=== PATIENT | female | born 1985 | race African-American/Black ===

== ENCOUNTER 2024-04-01 16:47 | Emergency (ER) | payer MEDICAID, SELFPAY ==
[2024-04-01 16:51] VITALS: BP 127/82; PULSE 58; RESP 16; TEMP 36.2; O2SAT 100; BMI 38.2
--- NOTE | 2024-04-01 17:25 | ED.FEMALEGU ---
HPI - Female Genitourinary General Chief complaint: Urogenital-Female Stated complaint: bacterial infection/UTI? Time Seen by Provider: 04/01/24 16:58 Source: patient Mode of arrival: ambulatory Limitations: no limitations History of Present Illness HPI Narrative: Patient is a 38-year-old female who presents emergency department for evaluation of dysuria over the past 2 days. Denies fevers, chills, nausea, vomiting or abdominal pain. Denies back/flank pain. Denies pelvic pain. Denies abnormal vaginal discharge or bleeding. Denies pain with intercourse. Denies concern for sexually transmitted infections. Denies possibility for .. Denies Related Data Previous Rx's ?Medication ?Instructions ?Recorded cefuroxime axetil 250 mg tablet 250 mg PO BID #13 tabs 04/01/24 Allergies Allergy/AdvReac Type Severity Reaction Status Date / Time No Known Allergies Allergy Verified 04/01/24 16:54 Review of Systems Review of Systems: Yes all other systems are reviewed and are negative [facility] Past Medical History Attestation statement: The following information was validated with the patient. Source: old records reviewed Social History Social History Advance Directives: No Advance Directives Information Provided: No Physical Exam Vital Signs: Vital Signs: Last Vital Signs Temp 97.2 F 04/01/24 16:51 Pulse 58 04/01/24 16:51 Resp 16 04/01/24 16:51 BP 127/82 04/01/24 16:51 Pulse Ox 100 04/01/24 16:51 O2 Del Method Room Air 04/01/24 16:51 BMI result Body Mass Index 38.2 Appearance: Alert.?Oriented to person, place and time. No acute distress.?Normal affect. CVS: Heart sounds normal. Normal heart rate and rhythm.? Pulses normal.?? Respiratory: No respiratory distress.? Lung sounds clear to auscultation bilaterally?? Abdomen: Soft and non-tender. Normoactive bowel sounds. No CVAT Skin: Skin warm and dry.? Normal skin color.? ? Extremities: No lower extremity edema.? Neuro: Moves all extremities spontaneously. Sensation intact bilaterally. Ambulates with normal steady gait. Medical Decision Making Medical Decision Making MDM Narrative: Patient is a 38-year-old female with past medical history of prior urinary tract infections by her account not known to be resistant to any bacteria, has not been treated in the past few months, she presents with dysuria x2 days. Urinalysis is consistent with urinary tract infection for which she received an initial dose of cefuroxime in the emergency department, No CVAT to suggest pyelonephritis. HCG is negative, not consistent with ectopic . No unilateral abdominal pain or tenderness on examination, denies concern for sexually transmitted infection, denies history of ovarian cysts lower suspicion for tubo-ovarian abscess/ PID, ovarian torsion, ruptured ovarian cyst. Differential Diagnosis Differential Diagnoses: The differential diagnosis associated with the presentation includes (See narrative above) Lab Data MDM Lab Attestation statement: I reviewed the patient's lab results. (See narrative above) Labs: Lab Results 04/01/24 Range/Units 17:41 Urine Color Yellow Urine Appearance Turbid Urine pH 5.5 (5.0-9.0) Ur Specific [place] 1.020 (1.005-1.025) Urine Protein Negative (Neg-Trace) mg/dL Urine Glucose (UA) Negative (Negative) mg/dL Urine Ketones Negative (Negative) mg/dL Urine Blood Negative (Negative) Urine Nitrite Positive H (Negative) Ur Leukocyte Esterase Moderate (2+) H (Negative) Urine Test NEGATIVE (NEGATIVE) Independent Historian Clinical information obtained from an independent historian. History obtained from or confirmed by: Parent Tests considered The following testing was considered but not selected: Well-appearing, nontoxic afebrile, would defer serum labs Prescription Management I considered prescription management with: Antibiotic Discharge Plan Discharge Clinical Impression: Urinary tract infection Patient Disposition: Home, Self-Care Instructions: Urinary Tract Infection in Women (ED) Additional Instructions: Do not stop taking your antibiotics early or skip any doses even if you begin to feel better. Be sure that you are drinking plenty of water. Refrain from holding your urine if you feel the urge to go to the bathroom. Be sure that you are urinating after sexual intercourse. Do not perform any vaginal douching for extensive cleansing as this may increase the chances of developing a urinary tract infection. Prescriptions: New cefuroxime axetil 250 mg tablet 250 mg PO BID Qty: 13 0RF Referrals: Pierre Schumacher [Other] Print Language: Syrian
[2024-04-01 17:49] LABS: Appearance Urine Turbid; Color Urine Yellow; Glucose Urine UA Negative (Negative); Leukocyte Esterase Urine Moderate (2+) (Negative); Nitrite Urine Positive (Negative); PH 5.5 (5.0-9.0); UMIC TRIGGER UACC YES; UPreg QC Valid YES; Urine Blood Negative (Negative); Urine Ketones Negative (Negative); Urine Pregnancy NEGATIVE (NEGATIVE); Urine Protein Negative (Neg-Trace)
[2024-04-01 18:14] LABS: WBC Urine 21-50 /HPF (0-5)
[2024-04-01 18:15] LABS: Bacteria Urine 4+ (None Seen); Hyaline Casts Urine 0-2 /LPF (0-2); Squamous Epithelial Cell Urine >20 /HPF (0-2); UACC Culture Trigger YES
[2024-04-01] MEDS: cefuroxime axetiL 250 MG TABLET PO (18:37)
[2024-04-01 18:38] VITALS: BP 127/82; PULSE 58; RESP 16; TEMP 36.2; O2SAT 100
== END 2024-04-01 18:39 | disposition home or self-care (01) ==
PROVIDERS: Emergency Provider Emergency Medicine
DX: N39.0 Urinary tract infection, site not specified (principal)
CPT/HCPCS: 81001; 81025; 87086; 87088; 87186; 99282; 99283

== ENCOUNTER 2024-04-30 10:24 | Emergency (ER) | payer MEDICAID, SELFPAY ==
[2024-04-30 10:26] VITALS: BP 159/69; PULSE 59; RESP 16; TEMP 36.4; O2SAT 99; BMI 39.1
[2024-04-30 12:07] LABS: Appearance Urine Cloudy; Color Urine Yellow; Glucose Urine UA Negative (Negative); Leukocyte Esterase Urine Small (1+) (Negative); Nitrite Urine Negative (Negative); PH 5.5 (5.0-9.0); UMIC TRIGGER UACC YES; Urine Blood Negative (Negative); Urine Ketones Negative (Negative); Urine Protein Negative (Neg-Trace)
[2024-04-30 12:08] LABS: UPreg QC Valid YES; Urine Pregnancy NEGATIVE (NEGATIVE)
[2024-04-30 12:20] LABS: Bacteria Urine 1+ (None Seen); Hyaline Casts Urine 0-2 /LPF (0-2); RBC Urine 0-2 /HPF (0-2); UACC Culture Trigger YES; WBC Urine 0-5 /HPF (0-5)
--- NOTE | 2024-04-30 13:10 | ED.FEMALEGU ---
HPI - Female Genitourinary General Chief complaint: Urogenital-Female Stated complaint: UTI? Time Seen by Provider: 04/30/24 12:23 Source: patient Mode of arrival: ambulatory Limitations: no limitations History of Present Illness ED Provider: Duke Simpson HPI Narrative: 38 yold female presents to the ED for dysuria without any nausea, vomitting, flank pain, fever, chills, abdominal pain, vaginal discharge, vaginal lesions, or vaginal bleeding. Related Data Previous Rx's ?Medication ?Instructions ?Recorded cefuroxime axetil 250 mg tablet 250 mg PO BID #13 tabs 04/01/24 phenazopyridine 200 mg tablet 200 mg PO TID 6 doses #6 tabs 04/30/24 (Pyridium) Allergies Allergy/AdvReac Type Severity Reaction Status Date / Time No Known Allergies Allergy Verified 04/30/24 10:27 Review of Systems Review of Systems: dysuria Yes all other systems are reviewed and are negative PMFSH Social History Social History Advance Directives: No Advance Directives Information Provided: Yes Physical Exam Vital Signs: Vital Signs: Last Vital Signs Temp 97.7 F 04/30/24 14:41 Pulse 59 04/30/24 14:41 Resp 16 04/30/24 14:41 BP 172/82 H 04/30/24 14:41 Pulse Ox 98 04/30/24 14:41 O2 Del Method Room Air 04/30/24 14:41 BMI result Body Mass Index 39.1 Const: General: cooperative, healthy appearing, comfortable, no acute distress, well developed, alert and awake Orientation/consciousness: patient oriented x3 HEENT: Head: Yes normal to inspection, Yes No palpable skull fracture present and Yes normocephalic Eyes: General: appearance normal, both eyes and all related structures Neck: Neck: Yes normal visual inspection, Yes full ROM, Yes no lymphadenopathy, Yes no meningeal signs, Yes trachea midline, Yes supple, No anterior neck swelling and No tender Chest: Chest palpation & inspection: normal inspection of the chest and normal palpation of entire chest wall Resp: Effort & Inspection: normal respiratory effort and able to speak in complete sentences Auscultation: clear to auscultation bilaterally Cardio: Jugular venous distension: no JVD Heart sounds: S1 normal heart sound present and S2 normal heart sound present GI: Inspection: Yes normal to inspection Palpation (GI): not firm, nontender, no guarding and not rigid : General: No CVA tenderness and Yes no CVA tenderness Back/Spine/Pelvis: Back: no CVA tenderness, No CVA tenderness and No back tenderness Skin: General skin exam: no rashes or lesions noted, elasticity normal and turgor normal Neuro: General: patient oriented x3, gait normal, tone normal, moves all extremities, Normal light touch and pain sensation, no meningeal signs, no focal motor deficits, CN's II-XI intact bilaterally and normal sensation to monofilament Extrem: General: Yes normal to inspection, Yes full ROM and Yes capillary refill normal Psych: Appearance: grossly normal, well kempt and not disheveled Medical Decision Making Medical Decision Making MDM Narrative: 38-year-old female presents to ED for dysuria without any other complaints. Patient refused pelvic exam. Patient was self swab. 2:18pm: Patient's UA negative for infection. Patient has self swabs. Patient is well-appearing. Patient informed she will be called with results of any of them, positive and she will have to return for treatment. Does not want any empiric treatment. Not suspecting pyelonephritis, pelvic PID, tubo-ovarian abscess, ovarian rupture, appendicitis, urosepsis, colitits, life threatening etiologies or kidney stones. Patient explained worrisome signs of informed return to the ED immediately Differential Diagnosis Differential Diagnoses: The differential diagnosis associated with the presentation includes (Dysuria) Admission/Observation Consideration of admission/observation: Escalation of care including admission/observation considered Lab Data [facility] Lab Attestation statement: I reviewed the patient's lab results. Labs: Lab Results 04/30/24 04/30/24 Range/Units 11:54 13:20 Urine Color Yellow Urine Appearance Cloudy Urine pH 5.5 (5.0-9.0) Ur Specific [place] 1.020 (1.005-1.025) Urine Protein Negative (Neg-Trace) mg/dL Urine Glucose (UA) Negative (Negative) mg/dL Urine Ketones Negative (Negative) mg/dL Urine Blood Negative (Negative) Urine Nitrite Negative (Negative) Ur Leukocyte Esterase Small (1+) H (Negative) Urine RBC 0-2 (0-2) /HPF Urine WBC 0-5 (0-5) /HPF Ur Squamous Epith Cells 6-10 (0-2) /HPF Urine Bacteria 1+ (None Seen) Hyaline Casts 0-2 (0-2) /LPF Urine Test NEGATIVE (NEGATIVE) T. vaginalis (PCR) NOT DETECTED (Not Detect) Bact vaginosis (PCR) POSITIVE A (Negative) C. krusei/glabrata (PCR) NOT DETECTED (Not Detect) Verna group (PCR) NOT DETECTED (Not Detect) Independent Historian Clinical information obtained from an independent historian. History obtained from or confirmed by: Other (Patient) External Record Review External record reviewed: Other (Prior visits) Prescription Management I considered prescription management with: Other (Pyridium) Discharge Plan Discharge Clinical Impression: Dysuria Patient Disposition: Home, Self-Care Instructions: Dysuria (ED) Additional Instructions: Urinalysis did not show obvious infection. Rest of the swabs are pending. You will be called with results if they are positive. Return to the ED immediately for any abdominal pain, nausea, vomiting, flank pain, fever, chills, blood in urine, vaginal bleeding, back pain, weakness, dizziness, or any other concerning symptoms. Recommend follow up with primary care provider. Prescriptions: New phenazopyridine [Pyridium] 200 mg tablet 200 mg PO TID Qty: 6 0RF No Action cefuroxime axetil 250 mg tablet 250 mg PO BID Qty: 13 0RF Stand Alone Forms: Work/School Release Interventions: ED Discharge Assessment Last Done: 04/30/24 14:41 Discharge Date/Time: 04/30/24 14:46 Print Language: German
[2024-04-30 14:37] VITALS: BP 172/82; PULSE 59; RESP 16; TEMP 36.5; O2SAT 98
[2024-04-30 14:41] VITALS: BP 172/82; PULSE 59; RESP 16; TEMP 36.5; O2SAT 98
[2024-04-30 15:10] LABS: Bacterial Vaginosis PCR POSITIVE (Negative); Candida Group PCR NOT DETECTED (Not Detect); Candida glab krusei PCR NOT DETECTED (Not Detect); Trichomonas vaginalis PCR NOT DETECTED (Not Detect)
[2024-04-30 15:42] LABS: CT PCR NOT DETECTED (Not Detect.); NG PCR NOT DETECTED (Not Detect.)
== END 2024-04-30 14:46 | disposition home or self-care (01) ==
PROVIDERS: Physician Assistant; Emergency Provider Emergency Medicine
DX: R30.0 Dysuria (principal); R11.2 Nausea with vomiting, unspecified; R50.9 Fever, unspecified; R10.2 Pelvic and perineal pain; N89.8 Other specified noninflammatory disorders of vagina; Z79.899 Other long term (current) drug therapy
CPT/HCPCS: 0352U; 81001; 81025; 87086; 87491; 87591; 99283

== ENCOUNTER 2024-07-03 17:00 | Emergency (ER) | payer MEDICAID, SELFPAY ==
--- NOTE | ~2024-07-03 | CT_ITS ---
CLINICAL HISTORY: lower abd pain CT abdomen and pelvis with contrast Comparison: None Findings: Mild bibasilar atelectasis and scarring. Mild fat deposition of the liver. Gallbladder and solid abdominal organs are otherwise unremarkable. Small mesenteric lymph nodes are likely reactive. No small bowel obstruction. Severe stool burden is present, including the cecum. The appendix is within normal limits. Inflammatory stranding is most pronounced about the lower portion of the descending colon including about multiple diverticula. No free intraperitoneal air. No formed or drainable abscess by CT. Wall thickening of the colitis including adjacent descending colon. Mild wall thickening of the urinary bladder is nonspecific. Uterus is anteverted in the deviates to the right. No adnexal soft tissue mass. Calcification or hemipelvis likely due to phleboliths. No acute osseous abnormality. IMPRESSION: Acute diverticulitis involving the lower portion of the descending colon. No perforation or abscess formation. This document has been electronically signed by: Dionicio Biswas MD on 07/04/2024 00:25:29
[2024-07-03 17:29] VITALS: BP 139/52; PULSE 63; RESP 16; TEMP 36.4; O2SAT 98; BMI 37.9
--- NOTE | 2024-07-03 17:32 | ED_ITS ---
HPI - General Adult General Chief complaint: Abdominal Pain Stated complaint: gas pain/lwr abd pain Time Seen by Provider: 07/03/24 22:22 Related Data Previous Rx's ?Medication ?Instructions ?Recorded cefuroxime axetil 250 mg tablet 250 mg PO BID #13 tabs 04/01/24 phenazopyridine 200 mg tablet 200 mg PO TID 6 doses #6 tabs 04/30/24 (Pyridium) metronidazole 500 mg tablet 500 mg PO BID #14 tabs 05/02/24 amoxicillin 875 mg-potassium 1 tab PO BID #20 tabs 07/04/24 clavulanate 125 mg tablet Allergies Allergy/AdvReac Type Severity Reaction Status Date / Time No Known Allergies Allergy Verified 07/03/24 17:32 [facility] Social History Social History Advance Directives: No Advance Directives Information Provided: No Physical Exam ED Vital Signs: Vital Signs - 24 hr 07/03/24 17:29 07/03/24 22:36 Temperature 97.5 F 98.2 F Pulse Rate 63 73 Respiratory Rate 16 14 Blood Pressure 139/52 L 147/72 H Pulse Oximetry 98 98 Oxygen Delivery Method Room Air Room Air BMI result Body Mass Index 37.9 Course Course Course Narrative: RME performed by Dafne Jj PA-C. Patient is a 38 year old assigned female at presenting to the emergency department with lower abdominal pain. Patient states she has been having lower abdominal pain. Patient's limited physical exam performed in triage showed a non-toxic individual. Detailed physical exam and review of systems are deferred to the staff home therapy rn. Labs and swabs ordered. Patient placed back in the waiting room pending room availability and results. Medical Decision Making Lab Data 07/03/24 17:43 07/03/24 17:43 Labs: Lab Results 07/03/24 07/03/24 Range/Units 17:43 22:37 WBC 11.5 H (4.8-10.8) X10*3/uL RBC 4.78 (4.20-5.50) X10*6/uL Hgb 12.5 (12.0-16.0) g/dl Hct 39.3 (37.0-47.0) % MCV 82.2 (80.0-98.0) fL MCH 26.2 L (27.0-33.0) pg MCHC 31.8 (31.0-35.0) g/dl RDW 15.1 (11.0-16.0) % Plt Count 213 (160-400) X10*3/uL MPV 11.8 (9.4-12.3) fL Immature Gran % (Auto) 0.4 (0.0-0.4) % Neut % (Auto) 71.7 (45-73) % Lymph % (Auto) 16.7 L (20-40) % [place] % (Auto) 10.3 (2-11) % Eos % (Auto) 0.6 (0-4) % Baso % (Auto) 0.3 (0-2) % Lymph # (Auto) 1.9 (1.2-4.9) X10*3/uL [place] # (Auto) 1.2 (0.1-1.2) X10*3/uL Eos # (Auto) 0.1 (0.0-0.4) X10*3/uL Baso # (Auto) 0.0 (0.0-0.2) X10*3/uL Abs Immat Gran (auto) 0.05 H (0.00-0.03) X10*3/uL Absolute Neuts (auto) 8.3 (2.0-8.3) x10*3/uL Absolute Nucleated RBC 0.000 (0.0-0.012) X10*3/uL Nucleated RBC % (auto) 0.0 (0.0-0.2) /100WBC Sodium 139 (135-145) mmol/L Potassium 3.7 (3.3-5.1) mmol/L Chloride 105 (96-108) mmol/L Carbon Dioxide 27 (22-29) mmol/L Anion Gap 11 L (12-20) BUN 15 (9-16) mg/dL Creatinine 0.75 (0.5-1.4) mg/dL Estim Creat Clear Calc 99.3 Estimated GFR > 60 Random Glucose 111 (60-115) mg/dL Calcium 8.5 (8.4-10.2) mg/dL Magnesium 1.9 (1.6-2.6) mg/dL Total Bilirubin 0.6 (0.0-1.0) mg/dL AST 16 (5-31) U/L ALT 10 (0-31) U/L Alkaline Phosphatase 69 (39-117) U/L Total Protein 7.8 (6.5-8.0) g/dL Albumin 4.1 (3.5-5.0) g/dL Beta HCG, Quant < 2 mIU/mL Urine Color Yellow Urine Appearance Cloudy Urine pH 5.5 (5.0-9.0) Ur Specific [place] 1.020 (1.005-1.025) Urine Protein Negative (Neg-Trace) mg/dL Urine Glucose (UA) Negative (Negative) mg/dL Urine Ketones Negative (Negative) mg/dL Urine Blood Negative (Negative) Urine Nitrite Negative (Negative) Ur Leukocyte Esterase Small (1+) H (Negative) Urine RBC 0-2 (0-2) /HPF Urine WBC 6-10 H (0-5) /HPF Ur Squamous Epith Cells 6-10 (0-2) /HPF Urine Bacteria 1+ (None Seen) Hyaline Casts 0-2 (0-2) /LPF Influenza Type A (PCR) NEGATIVE (Negative) Influenza Type B (PCR) NEGATIVE (Negative) RSV RNA Qual (PCR) NEGATIVE (Negative) SARS-CoV-2 RNA (RT-PCR) NEGATIVE (Negative) Discharge Plan Discharge Clinical Impression: Diverticulitis Patient Disposition: Home, Self-Care Instructions: Diverticulitis (ED) Prescriptions: New amoxicillin-pot clavulanate 875-125 mg tablet 1 tab PO BID Qty: 20 0RF No Action phenazopyridine [Pyridium] 200 mg tablet 200 mg PO TID Qty: 6 0RF metronidazole 500 mg tablet 500 mg PO BID Qty: 14 0RF cefuroxime axetil 250 mg tablet 250 mg PO BID Qty: 13 0RF Referrals: Physician,Unknown J [Primary Care Provider] - 07/06/24 Print Language: Cameroonian
[2024-07-03 17:47] LABS: MANUAL DIFF FLAG NO
[2024-07-03 17:57] LABS: Basophils Percent Auto 0.3 % (0-2); Eosinophils Absolute Auto 0.1 X10*3/uL (0.0-0.4); Eosinophils Percent Auto 0.6 % (0-4); Hematocrit 39.3 % (37.0-47.0); Hemoglobin 12.5 g/dl (12.0-16.0); Imm Gran Abs Auto 0.05 X10*3/uL (0.00-0.03); Imm Gran Pct Auto 0.4 % (0.0-0.4); Lymphocytes Absolute Auto 1.9 X10*3/uL (1.2-4.9); Lymphocytes Percent Auto 16.7 % (20-40); Mean Corpuscular HGB Conc 31.8 g/dl (31.0-35.0); Mean Corpuscular Hemoglobin 26.2 pg (27.0-33.0); Mean Corpuscular Volume 82.2 fL (80.0-98.0); Mean Platelet Volume 11.8 fL (9.4-12.3); Monocytes Absolute Auto 1.2 X10*3/uL (0.1-1.2); Monocytes Percent Auto 10.3 % (2-11); Neutrophils Absolute Auto 8.3 x10*3/uL (2.0-8.3); Neutrophils Percent Auto 71.7 % (45-73); Platelet Count 213 X10*3/uL (160-400); Red Blood Count 4.78 X10*6/uL (4.20-5.50); Red Cell Distribution Width 15.1 % (11.0-16.0); White Blood Count 11.5 X10*3/uL (4.8-10.8)
[2024-07-03 18:08] LABS: Alanine Aminotransferase 10 U/L (0-31); Albumin Level 4.1 g/dL (3.5-5.0); Alkaline Phosphatase 69 U/L (39-117); Anion Gap 11 (12-20); Aspartate Amino Transferase 16 U/L (5-31); Bilirubin Total 0.6 mg/dL (0.0-1.0); Blood Urea Nitrogen 15 mg/dL (9-16); Calcium 8.5 mg/dL (8.4-10.2); Carbon Dioxide 27 mmol/L (22-29); Chloride 105 mmol/L (96-108); Creatinine Clr Calc Pharmacy 99.3; Estimated Glomerular Filt Rate > 60; Glucose Random 111 mg/dL (60-115); Magnesium 1.9 mg/dL (1.6-2.6); Potassium 3.7 mmol/L (3.3-5.1); Sodium 139 mmol/L (135-145); Total Protein 7.8 g/dL (6.5-8.0)
[2024-07-03 18:14] LABS: HCG Quantitative < 2 mIU/mL
[2024-07-03 18:34] LABS: Influenza A PCR NEGATIVE (Negative); Influenza B PCR NEGATIVE (Negative); Resp Syncy Virus RNA Qual PCR NEGATIVE (Negative); SARS COV2 PCR INHOUSE NEGATIVE (Negative)
--- NOTE | 2024-07-03 22:32 | ED.ABDPAIN ---
HPI - Abdominal Pain General Chief Complaint: Abdominal Pain Stated Complaint: gas pain/lwr abd pain Time Seen by Provider: 07/03/24 22:22 History of Present Illness HPI narrative: Patient is a 38-year-old female presents today with having lower abdominal pain. There is no fever no chills. There is sharp pain. There is no diaphoresis. Patient sexually active 1 partner. No vaginal discharge. Had tubal ligation many years ago. Does not think she is . No coughing no congestion or upper respiratory symptoms. No diarrhea. No vomiting. Only surgery to the abdomen done in the past was a tubal ligation. Patient's symptoms started this morning. Related Data Previous Rx's ?Medication ?Instructions ?Recorded cefuroxime axetil 250 mg tablet 250 mg PO BID #13 tabs 04/01/24 phenazopyridine 200 mg tablet 200 mg PO TID 6 doses #6 tabs 04/30/24 (Pyridium) metronidazole 500 mg tablet 500 mg PO BID #14 tabs 05/02/24 amoxicillin 875 mg-potassium 1 tab PO BID #20 tabs 07/04/24 clavulanate 125 mg tablet Allergies Allergy/AdvReac Type Severity Reaction Status Date / Time No Known Allergies Allergy Verified 07/03/24 17:32 Review of Systems Review of Systems Positive abdominal pain Yes all other systems are reviewed and are negative PMFSH Past Medical History Attestation statement: The following information was validated with the patient. Social History Social History Advance Directives: No Advance Directives Information Provided: No Physical Exam ED Vital Signs: Vital Signs - 24 hr 07/03/24 17:29 07/03/24 22:36 Temperature 97.5 F 98.2 F Pulse Rate 63 73 Respiratory Rate 16 14 Blood Pressure 139/52 L 147/72 H Pulse Oximetry 98 98 Oxygen Delivery Method Room Air Room Air BMI result Body Mass Index 37.9 Appearance: Alert. Oriented X3. No acute distress. Eyes: Pupils equal, round and reactive to light. ENT: Pharynx normal. Neck: Normal inspection. Neck supple. No lymph nodes noted. No crepitus CVS: Normal heart rate and rhythm. Pulses normal. Normal S1 and S2 Respiratory: No respiratory distress. Breath sounds normal. No Wheezing. No rales Abdomen: Soft and nontender. No rigidity. No distention. good BS x4 Skin: Skin warm and dry. Normal skin color. Normal skin turgor. Extremities: No lower extremity edema. Neurovascular intact to all extremities. No Lacerations. No Rash Neuro: Oriented X 3. No motor deficit. No sensory deficit. Moving all extermities. No slurred speech Medical Decision Making Medical Decision Making [facility] Narrative: Patient had lower abdominal pain. No vaginal discharge. Patient's urine showed no signs of infection no evidence for UTI. Patient is white count was 11. No significant shift. LFTs are normal. test was negative no evidence for related issue. Patient is flu COVID RSV were all negative. She is sexually active 1 partner. A pelvic exam was done with nursing present. Externally there was no external lesion noted. Patient had no discharge noted in the vaginal canal. Cervical os was closed. There is no adnexal tenderness elicited. The cervix was nonfriable. Patient's cultures was sent. GC chlamydia sent BV and Trichomonas sent. CT scan of the abdomen was done. CT abdomen pelvis was negative for obstruction abscess perforation per Radiology. It did show evidence of diverticulitis. There is no abscess there is no perforation. There is no adnexal mass to suggest patient has a tubo-ovarian abscess. To suggest patient has torsion. Will discharge patient home. Started on a dose of Unasyn in stable condition will discharge on Augmentin follow-up outpatient. Differential Diagnosis Differential Diagnoses: The differential diagnosis associated with the presentation includes Diverticulitis, UTI, related issue, STD, ovarian torsion Admission/Observation Consideration of admission/observation: Escalation of care including admission/observation considered Lab Data [facility] Lab Attestation statement: I reviewed the patient's lab results. 07/03/24 17:43 07/03/24 17:43 Labs: Lab Results 07/03/24 07/03/24 Range/Units 17:43 22:37 WBC 11.5 H (4.8-10.8) X10*3/uL RBC 4.78 (4.20-5.50) X10*6/uL Hgb 12.5 (12.0-16.0) g/dl Hct 39.3 (37.0-47.0) % MCV 82.2 (80.0-98.0) fL MCH 26.2 L (27.0-33.0) pg MCHC 31.8 (31.0-35.0) g/dl RDW 15.1 (11.0-16.0) % Plt Count 213 (160-400) X10*3/uL MPV 11.8 (9.4-12.3) fL Immature Gran % (Auto) 0.4 (0.0-0.4) % Neut % (Auto) 71.7 (45-73) % Lymph % (Auto) 16.7 L (20-40) % [place] % (Auto) 10.3 (2-11) % Eos % (Auto) 0.6 (0-4) % Baso % (Auto) 0.3 (0-2) % Lymph # (Auto) 1.9 (1.2-4.9) X10*3/uL [place] # (Auto) 1.2 (0.1-1.2) X10*3/uL Eos # (Auto) 0.1 (0.0-0.4) X10*3/uL Baso # (Auto) 0.0 (0.0-0.2) X10*3/uL Abs Immat Gran (auto) 0.05 H (0.00-0.03) X10*3/uL Absolute Neuts (auto) 8.3 (2.0-8.3) x10*3/uL Absolute Nucleated RBC 0.000 (0.0-0.012) X10*3/uL Nucleated RBC % (auto) 0.0 (0.0-0.2) /100WBC Sodium 139 (135-145) mmol/L Potassium 3.7 (3.3-5.1) mmol/L Chloride 105 (96-108) mmol/L Carbon Dioxide 27 (22-29) mmol/L Anion Gap 11 L (12-20) BUN 15 (9-16) mg/dL Creatinine 0.75 (0.5-1.4) mg/dL Estim Creat Clear Calc 99.3 Estimated GFR > 60 Random Glucose 111 (60-115) mg/dL Calcium 8.5 (8.4-10.2) mg/dL Magnesium 1.9 (1.6-2.6) mg/dL Total Bilirubin 0.6 (0.0-1.0) mg/dL AST 16 (5-31) U/L ALT 10 (0-31) U/L Alkaline Phosphatase 69 (39-117) U/L Total Protein 7.8 (6.5-8.0) g/dL Albumin 4.1 (3.5-5.0) g/dL Beta HCG, Quant < 2 mIU/mL Urine Color Yellow Urine Appearance Cloudy Urine pH 5.5 (5.0-9.0) Ur Specific [place] 1.020 (1.005-1.025) Urine Protein Negative (Neg-Trace) mg/dL Urine Glucose (UA) Negative (Negative) mg/dL Urine Ketones Negative (Negative) mg/dL Urine Blood Negative (Negative) Urine Nitrite Negative (Negative) Ur Leukocyte Esterase Small (1+) H (Negative) Urine RBC 0-2 (0-2) /HPF Urine WBC 6-10 H (0-5) /HPF Ur Squamous Epith Cells 6-10 (0-2) /HPF Urine Bacteria 1+ (None Seen) Hyaline Casts 0-2 (0-2) /LPF Influenza Type A (PCR) NEGATIVE (Negative) Influenza Type B (PCR) NEGATIVE (Negative) RSV RNA Qual (PCR) NEGATIVE (Negative) SARS-CoV-2 RNA (RT-PCR) NEGATIVE (Negative) Independent Interpretation I performed an independent interpretation of an: CT Scan (No overt obstruction) Radiology Impression Discussion of test interpretation with radiology: I have reviewed the radiologist's reading. External Record Review Previous ED records reviewed Prescription Management I considered prescription management with: Antibiotic Discharge Plan Discharge Clinical Impression: Diverticulitis Patient Disposition: Home, Self-Care Instructions: Diverticulitis (ED) Prescriptions: New amoxicillin-pot clavulanate 875-125 mg tablet 1 tab PO BID Qty: 20 0RF No Action phenazopyridine [Pyridium] 200 mg tablet 200 mg PO TID Qty: 6 0RF metronidazole 500 mg tablet 500 mg PO BID Qty: 14 0RF cefuroxime axetil 250 mg tablet 250 mg PO BID Qty: 13 0RF Referrals: Physician,Unknown J [Primary Care Provider] - 07/06/24 Print Language: Telugu
[2024-07-03 22:36] VITALS: BP 147/72; PULSE 73; RESP 14; TEMP 36.8; O2SAT 98
[2024-07-03 22:44] LABS: Appearance Urine Cloudy; Color Urine Yellow; Glucose Urine UA Negative (Negative); Leukocyte Esterase Urine Small (1+) (Negative); Nitrite Urine Negative (Negative); PH 5.5 (5.0-9.0); UMIC TRIGGER UACC YES; Urine Blood Negative (Negative); Urine Ketones Negative (Negative); Urine Protein Negative (Neg-Trace)
[2024-07-03 22:49] LABS: Bacteria Urine 1+ (None Seen); Hyaline Casts Urine 0-2 /LPF (0-2); RBC Urine 0-2 /HPF (0-2); UACC Culture Trigger YES
--- NOTE | 2024-07-04 00:42 | PC.NURSE ---
per no blood cultures prior to d/c.
[2024-07-04] MEDS: Ampicillin Sodium/Sulbactam Na 3 GM in 0.9 % Sodium Chloride 100 ML IV (00:46)
[2024-07-04 01:13] VITALS: BP 147/72; PULSE 73; RESP 14; TEMP 36.8; O2SAT 98
[2024-07-04 02:20] LABS: CT PCR NOT DETECTED (Not Detect.); NG PCR NOT DETECTED (Not Detect.)
[2024-07-04 09:37] LABS: Bacterial Vaginosis PCR NEGATIVE (Negative); Candida Group PCR NOT DETECTED (Not Detect); Candida glab krusei PCR NOT DETECTED (Not Detect); Trichomonas vaginalis PCR NOT DETECTED (Not Detect)
== END 2024-07-04 01:13 | disposition home or self-care (01) ==
PROVIDERS: Physician Assistant Medical; Emergency Provider Emergency Medicine Emergency Medical Services
DX: K57.32 Diverticulitis of large intestine without perforation or abscess without bleeding (principal); R10.2 Pelvic and perineal pain; Z79.899 Other long term (current) drug therapy; Z03.818 Encounter for observation for suspected exposure to other biological agents ruled out
CPT/HCPCS: 0241U; 74177; 80053; 81001; 81515; 83735; 84702; 85025; 87086; 87491; 87591; 96365; 99284; J0295

== ENCOUNTER → 2024-07-03 22:54 | Outpatient (BNV) | payer MEDICAID, SELFPAY | PROVIDERS: Emergency Provider Emergency Medicine Emergency Medical Services; Visit Provider Radiology Neuroradiology | DX: R14.1 Gas pain (principal) | CPT/HCPCS: 74177 ==

== ENCOUNTER 2024-09-01 18:01 | Emergency (ER) | payer MEDICAID, SELFPAY ==
[2024-09-01 19:27] VITALS: BP 149/79; PULSE 61; RESP 18; TEMP 36.8; O2SAT 98; BMI 36.7
--- NOTE | 2024-09-01 19:31 | ED.GENADULT ---
HPI - General Adult General Chief complaint: Abdominal Pain Stated complaint: Diverticulitis flare up Time Seen by Provider: 09/01/24 22:26 Source: patient, RN notes reviewed and old records reviewed Mode of arrival: ambulatory Limitations: no limitations History of Present Illness ED Provider: Kavita WILKS narrative: [age] old female presents for evaluation of left-sided abdominal pain. Patient reports pain for the last 2 days. She reports that she was diagnosed with diverticulitis about 2 months ago and this feels similar. She reports some constipation but denies black or bloody stool. Denies any nausea vomiting. Denies any fevers she reports that her pain waxes and wanes in intensity her pain does not radiate around to the left flank denies any blood in the urine, difficulty urinating Related Data Previous Rx's ?Medication ?Instructions ?Recorded cefuroxime axetil 250 mg tablet 250 mg PO BID #13 tabs 04/01/24 phenazopyridine 200 mg tablet 200 mg PO TID 6 doses #6 tabs 04/30/24 (Pyridium) metronidazole 500 mg tablet 500 mg PO BID #14 tabs 05/02/24 amoxicillin 875 mg-potassium 1 tab PO BID #20 tabs 07/04/24 clavulanate 125 mg tablet amoxicillin 875 mg-potassium 1 tab PO Q12H #14 tabs 09/01/24 clavulanate 125 mg tablet Allergies Allergy/AdvReac Type Severity Reaction Status Date / Time No Known Allergies Allergy Verified 09/01/24 19:27 Review of Systems Constitutional: Constitutional: Denies body ache(s), Denies chills and Denies fever(s) Eyes: Eyes: Denies blurry vision ENT: Denies vertigo and Denies dizziness Cardiovascular: Cardiovascular: Denies chest pain Gastrointestinal: Gastrointestinal: Reports abdominal pain, Denies hematochezia, Reports constipation, Denies diarrhea, Denies loose stools and Denies vomiting Genitourinary: Genitourinary: Denies dysuria and Denies pelvic pain Musculoskeletal: Musculoskeletal: Denies back pain Integumentary/Breasts: Skin/Breast: Denies rash Neurologic: Denies vertigo and Denies dizziness Psychiatric: Psychiatric: Denies anxiety PMFSH Social History Social History Advance Directives: No Advance Directives Information Provided: Yes Physical Exam ED Vital Signs: Vital Signs - 24 hr 09/01/24 19:27 09/01/24 22:43 09/01/24 23:03 Temperature 98.2 F 97.3 F 97.3 F Pulse Rate 61 60 60 Respiratory Rate 18 16 16 Blood Pressure 149/79 H 170/87 H 170/87 H Pulse Oximetry 98 98 98 Oxygen Delivery Method Room Air Room Air Room Air BMI result Body Mass Index 36.7 Const General: healthy appearing, comfortable, no acute distress, alert and awake Nutritional Appearance: well nourished Orientation/consciousness: patient oriented x3 HENMT Head: Yes normocephalic and Yes atraumatic Eyes Eyelids: Yes eyelids normal Conjunctivae: conjunctivae normal Sclerae: sclerae normal Corneas: corneas normal Pupils: Equal, round and reactive pupils present EOM: EOMs intact bilaterally Neck Neck: Yes full ROM Resp Effort & Inspection: normal respiratory effort, able to speak in complete sentences and not labored GI Inspection: No distended Palpation (GI): Soft to palpation, not firm, Tenderness to palpation present (GI) in the LLQ and in the LUQ, no guarding and not rigid General: Yes no CVA tenderness Back/Spine/Pelvis Back: no CVA tenderness Neuro General: patient oriented x3 Cranial nerves: Yes Equal, round and reactive pupils present and Yes Bilaterally intact EOM present Cognition (Neuro): normal cognition Extrem Other: Moving all extremities well without any obvious deformities Course Course Course Narrative: RME performed by Dafne Jj PA-C. Patient is a 39 year old assigned female at presenting to the emergency department with abdominal pain. Detailed physical exam and review of systems are deferred to the pharmaceutical detailer. Labs ordered. Patient placed back in the waiting room pending room availability and results. Medications Administered Discontinued Medications Generic Name Dose Route Start Last Admin Trade Name Freq PRN Reason Stop Dose Admin Amoxicillin/Clavulanate Potassium 875 mg 09/01/24 22:55 09/01/24 23:00 Amoxicillin/Potassium Clav 875 Mg Tablet PO 09/01/24 22:56 875 mg ONCE ONE Administration Medical Decision Making Medical Decision Making MDM Narrative: 39 old female presents for evaluation of abdominal pain. She reports this is consistent with a previous episodes of diverticulitis. She is afebrile, no leukocytosis. She has some tenderness after abdomen without guarding. No rebound tenderness. She appears quite well overall. Discussed possible CT imaging to evaluate for diverticulitis otherwise very low suspicion for complicated diverticulitis. After discussion with the patient, we will have her consume a liquid diet for the next 2-3 days. I will prescribe a week's worth of Augmentin for what is likely a mild diverticulitis flare. She has no urinary complaints but was unable to provide a urinalysis. Augmentin should cover common causes of UTIs even if she did have 1. There was no evidence of sepsis, ultimately a CT scan was deferred at this time Differential Diagnosis Differential Diagnoses: The differential diagnosis associated with the presentation includes abdominal pain Diverticulitis Colitis UTI Obstructive uropathy less likely Lab Data MDM Lab Attestation statement: I reviewed the patient's lab results. no leukocytosis or anemia. Normal platelet count. No electrolyte abnormalities. Renal function within normal limits. 09/01/24 19:37 09/01/24 19:37 Labs: Lab Results 09/01/24 Range/Units 19:37 WBC 9.4 (4.8-10.8) X10*3/uL RBC 4.86 (4.20-5.50) X10*6/uL Hgb 12.6 (12.0-16.0) g/dl Hct 38.8 (37.0-47.0) % MCV 79.8 L (80.0-98.0) fL MCH 25.9 L (27.0-33.0) pg MCHC 32.5 (31.0-35.0) g/dl RDW 15.3 (11.0-16.0) % Plt Count 218 (160-400) X10*3/uL MPV 11.0 (9.4-12.3) fL Immature Gran % (Auto) 0.3 (0.0-0.4) % Neut % (Auto) 62.2 (45-73) % Lymph % (Auto) 25.2 (20-40) % Creek % (Auto) 11.0 (2-11) % Eos % (Auto) 1.0 (0-4) % Baso % (Auto) 0.3 (0-2) % Lymph # (Auto) 2.4 (1.2-4.9) X10*3/uL Creek # (Auto) 1.0 (0.1-1.2) X10*3/uL Eos # (Auto) 0.1 (0.0-0.4) X10*3/uL Baso # (Auto) 0.0 (0.0-0.2) X10*3/uL Abs Immat Gran (auto) 0.03 (0.00-0.03) X10*3/uL Absolute Neuts (auto) 5.8 (2.0-8.3) x10*3/uL Absolute Nucleated RBC 0.000 (0.0-0.012) X10*3/uL Nucleated RBC % (auto) 0.0 (0.0-0.2) /100WBC Sodium 141 (135-145) mmol/L Potassium 3.8 (3.3-5.1) mmol/L Chloride 106 (96-108) mmol/L Carbon Dioxide 27 (22-29) mmol/L Anion Gap 12 (12-20) BUN 13 (9-16) mg/dL Creatinine 0.78 (0.5-1.4) mg/dL Estim Creat Clear Calc 92.8 Estimated GFR > 60 Random Glucose 83 (60-115) mg/dL Calcium 9.5 D (8.4-10.2) mg/dL Magnesium 1.9 (1.6-2.6) mg/dL Total Bilirubin 0.6 (0.0-1.0) mg/dL AST 18 (5-31) U/L ALT 13 (0-31) U/L Alkaline Phosphatase 87 (39-117) U/L Total Protein 7.3 (6.5-8.0) g/dL Albumin 4.0 (3.5-5.0) g/dL Influenza Type A (PCR) NEGATIVE (Negative) Influenza Type B (PCR) NEGATIVE (Negative) RSV RNA Qual (PCR) NEGATIVE (Negative) SARS-CoV-2 RNA (RT-PCR) NEGATIVE (Negative) Tests considered The following testing was considered but not selected: Consider CT scan of the abdomen pelvis but ultimately deferred this. Discharge Plan Discharge Clinical Impression: Abdominal pain Patient Disposition: Home, Self-Care Instructions: Diverticulitis (ED) Additional Instructions: your blood work today was reassuring. Your symptoms are likely related to diverticulitis take the Augmentin twice daily for 7 days. I recommend that you do a liquid diet for the next 1-2 days and advance as tolerated follow-up with your primary doctor, return for new or worsening symptoms, especially if you develop fever, severe pain Prescriptions: New amoxicillin-pot clavulanate 875-125 mg tablet 1 tab PO Q12H Qty: 14 0RF No Action phenazopyridine [Pyridium] 200 mg tablet 200 mg PO TID Qty: 6 0RF metronidazole 500 mg tablet 500 mg PO BID Qty: 14 0RF amoxicillin-pot clavulanate 875-125 mg tablet 1 tab PO BID Qty: 20 0RF cefuroxime axetil 250 mg tablet 250 mg PO BID Qty: 13 0RF Interventions: ED Discharge Assessment Last Done: 09/01/24 23:03 Discharge Date/Time: 09/01/24 23:07 Print Language: [place]
[2024-09-01 19:41] LABS: MANUAL DIFF FLAG NO
[2024-09-01 19:42] LABS: Basophils Percent Auto 0.3 % (0-2); Eosinophils Absolute Auto 0.1 X10*3/uL (0.0-0.4); Hematocrit 38.8 % (37.0-47.0); Hemoglobin 12.6 g/dl (12.0-16.0); Imm Gran Abs Auto 0.03 X10*3/uL (0.00-0.03); Imm Gran Pct Auto 0.3 % (0.0-0.4); Lymphocytes Absolute Auto 2.4 X10*3/uL (1.2-4.9); Lymphocytes Percent Auto 25.2 % (20-40); Mean Corpuscular HGB Conc 32.5 g/dl (31.0-35.0); Mean Corpuscular Hemoglobin 25.9 pg (27.0-33.0); Mean Corpuscular Volume 79.8 fL (80.0-98.0); Neutrophils Absolute Auto 5.8 x10*3/uL (2.0-8.3); Neutrophils Percent Auto 62.2 % (45-73); Platelet Count 218 X10*3/uL (160-400); Red Blood Count 4.86 X10*6/uL (4.20-5.50); Red Cell Distribution Width 15.3 % (11.0-16.0); White Blood Count 9.4 X10*3/uL (4.8-10.8)
[2024-09-01 20:07] LABS: Alanine Aminotransferase 13 U/L (0-31); Alkaline Phosphatase 87 U/L (39-117); Anion Gap 12 (12-20); Aspartate Amino Transferase 18 U/L (5-31); Bilirubin Total 0.6 mg/dL (0.0-1.0); Blood Urea Nitrogen 13 mg/dL (9-16); Calcium 9.5 mg/dL (8.4-10.2); Carbon Dioxide 27 mmol/L (22-29); Chloride 106 mmol/L (96-108); Creatinine Clr Calc Pharmacy 92.8; Estimated Glomerular Filt Rate > 60; Glucose Random 83 mg/dL (60-115); Magnesium 1.9 mg/dL (1.6-2.6); Potassium 3.8 mmol/L (3.3-5.1); Sodium 141 mmol/L (135-145); Total Protein 7.3 g/dL (6.5-8.0)
[2024-09-01 20:18] LABS: Influenza A PCR NEGATIVE (Negative); Influenza B PCR NEGATIVE (Negative); Resp Syncy Virus RNA Qual PCR NEGATIVE (Negative); SARS COV2 PCR INHOUSE NEGATIVE (Negative)
[2024-09-01 22:43] VITALS: BP 170/87; PULSE 60; RESP 16; TEMP 36.3; O2SAT 98
--- OUTSIDE RECORDS SUMMARY | 2024-09-01 22:58 | XMS_ITS | Clinical Summary ---
Author Organization [employer] Address [address] [place] [address] Care Team Providers Care Body Artist Name Role Phone Pierre Cody NP Primary Care Provider [phone] Allergies No known active allergies Medications Unithroid 88 MCG tablet Take 88 mcg by mouth in the morning. 2 Active ergocalciferol (Vitamin D2) 1.25 MG (64737 UT) capsule Take by mouth. 0 Active metFORMIN (Glucophage) 500 MG tabletIndicatio ns:Type 2 diabetes mellitus with obesity (CMS/HCC) (CMS/HCC) TAKE 1 TABLET (500 MG) BY MOUTH WITH BREAKFAST AND WITH EVENING MEAL. 60 tablet 1 4 05/20/20 25 Active Active Problems Problem Noted Date Diagnosed Date No vaccination-pt refuse 08/23/2024 Assessment & Plan (08/23/2024 3:35 PM EDT): Reviewed vaccine(s) that she would benefit from given diabetes. She declines today. Type 2 diabetes mellitus with obesity (CMS/HCC) 11/30/2023 Assessment & Plan (08/23/2024 3:34 PM EDT): Last HgA1C 7.1%. - November 2023 Continue Metformin 500mg, which she is taking once daily at this time. Non-pharm: Briefly reviewed diet/nutrition. Due for HgA1c testing- will get today. Medication adjustments pending lab work. F/u with MERY Cody early early November 2024 Advised that she make eye appointment for evaluation. Assessment & Plan (12/28/2023 4:10 PM EDT): New onset DM2. HgA1C 7.1%. Reviewed both pharm and non-pharm therapy. Pharm: Start Metformin 500mg BID by mouth ~advised take 500mg for 2-3 weeks, then increase to 500mg BID dosage. Medication side effects, indications, contraindications, and correct use were discussed with the patient, all questions answered to patient's satisfaction. Non-pharm: Diabetes diet/nutrition counseling provided to patient. Reviewed basics of diet/nutrition education during visit. Lab work placed. F/u with MERY Cody early Feb 2024. Routine general medical exam ination at a [facility] facility 09/30/2022 Assessment & Plan (11/29/2023 4:31 PM EDT): -reviewed breast self-awareness, diet/nutrition, physical activity, sexual health, seatbelts, sun exposure, ETOH/illicit drugs/tobacco, cervical/breast CA screening. -Reviewed importance of dental/eye exam. -Immunizations: reviewed, she does not want vaccines -Labwork entered, will get back with results. Assessment & Plan (09/30/2022 4:11 PM EDT): -reviewed breast self-awareness, diet/nutrition, physical activity, sexual health, seatbelts, sun exposure, ETOH/illicit drugs/tobacco, cervical/breast CA screening. -Reviewed importance of dental/eye exam. -Immunizations: reviewed -Labwork entered, will get back with results. Hyperlipidemia 10/09/2021 Assessment & Plan (08/23/2024 3:33 PM EDT): She does have abnl lipid panel. Would like to repeat lab work at this time for evaluation. Consideration for statin therapy pending lab work. Assessment & Plan (12/28/2023 4:08 PM EDT): She does have abnl lipid panel. She was not fasting for the lab work when they were done. Labs are likely altered also b/c of her new onset DM. Since she is starting oral therapy, and as to new overwhelm her/her system, would suggest defer statin regimen for right now as she starts Metformin. Repeat lipid panel in 3 months, ideally fasting state. Diet/lifestyle reviewed. Knee pain, right 10/09/2021 Twitching 08/28/2020 Overview (09/28/2022): eye Hand pain, right 07/16/2020 Seborrheic dermatitis 04/30/2020 Cyst of skin 04/30/2020 Assessment & Plan (12/28/2023 4:07 PM EDT): Derm referral placed for upcoming appointment. Arthralgia 02/01/2020 Impaired glucose tolerance 06/15/2019 Obesity with body mass index 30 or greater 06/15 Abnormal cervical Papanicolaou smear 05/30/2018 Assessment & Plan (10/01/2022 9:50 AM EDT): Last year had pap smear: Neg cell, +HPV Repeat pap at this time. ~completed by Dr. Wild Raymond's thyroiditis 05/30/2018 Assessment & Plan (09/30/2022 4:11 PM EDT): Pt follows with Endo at [facility]. Vitamin D deficiency 05/30/2018 Encounters Date Type Department Care Team Description 08/23/2024 3:10 PM EDT Office [facility] [address] [place] [address] Pierre Cody NP Type 2 diabetes mellitus with obesity (CMS/HCC) (CMS/HCC) (Primary Dx); Hyperlipidemia, unspecified hyperlipidemia type; No vaccination-pt refuse 08/11/2024 Population Health Risk Score [facility] ([facility] Department [address] [place] [phone] Provider, Population Health Generic from Last 3 Months Immunizations Name Administration Dates Next Due Td (adult), unspecified 06/15/2019 Tdap 06/15/2019 Family History Medical History Relation Name Comments Breast cancer Mother Diabetes Mother Cervical cancer Neg Hx Colon cancer Neg Hx Melanoma Neg Hx Ovarian cancer Neg Hx Relation Name Status Comments Brother half brother- n ever met, unsure health history Father unsure of healt h history; unsure if alive or Maternal Grandfather Maternal Grandmother Mother Alive Paternal Grandfather Social History Tobacco Use Types Packs/Day Years Used Date Smoking Tobacco: Never Smokeless Tobacco: Never Tobacco Cessation:Counseling Given: Not Answered Alcohol Use Standard Drinks/Week Comments Not Currently 0 (1 standard drink = 0.6 oz pur e alcohol) on occasion Depression Answer Date Recorded Patient Health Questionnaire-9 Score 0 05/08/2024 Patient Health Questionnaire-9 Score 0 05/08/2024 Last PHQ-9: Questionnaire Data Not on file 1 07/09/2023 Housing Stability Answer Date Recorded What is your housing situation today? I do not have housing (Staying with others, in a hotel, in a nursing home, living outside on the street, on a beach, in a car, or in a park 11/29/[address] you li ve. Do you have problems with any of the following? None of the above 11/29/2023 Food Insecurity Answer Date Recorded Within the past 12 months, y ou worried that your food would run out before you got money to buy more: Never True 11/29/2023 Within the past 12 months,th e food you bought just didn't last and you didn't have enough money to get more: Never True 05/2023 Transportation Answer Date Recorded In the past 12 months, has l ack of transportation kept you from medical appts, meetings, work or from getting things needed for daily living? No 11/29/2023 Utilities Answer Date Recorded In the past 12 months, has t he electric, gas, oil or water company threatened to shut off services in your home? No 11/29/2023 Depression Answer Date Recorded Patient Health Questionnaire-2 Score 0 05/08/2024 Internet Access Answer Date Recorded Internet Access Q1 Yes 01/30/2024 Internet Access Q2 Not on file 01/30/2024 Education Answer Date Recorded What is the highest level of school you have completed or the highest degree you have received? Some college, no degree 09/30/2022 Comments No Sex and Gender Information Value Date Recorded Sex Assigned at Female 03/27/2022 3:37 PM EDT Legal Sex Female 3:37 PM EDT Gender Identity Female 03/27/2022 3:37 PM EDT Sexual Orientation Straight 03/27/2022 3: 37 PM EDT Occupation Industry Job Start Date Job End Date unemployed Not on file Not on file Not on file Last Filed Vital Signs Vital Sign Reading Time Taken Comments Blood Pressure 109/73 08/23/2024 3:05 PM EDT Pulse 66 08/23/2024 3:05 PM EDT Temperature 35.8 ??C (96.4 ??F) 12/28/2023 3:24 PM ED T Respiratory Rate - - Oxygen Saturation 98% 08/23/2024 3:05 PM EDT Inhaled Oxygen Concentration - - Weight 85.2 kg (187 lb 12.8 oz) 08/23/2024 3:05 PM EDT Height 153 cm (5' 0.24 ) 11/29/2023 4:09 PM EDT Body Mass Index 36.39 11/29/2023 4:09 PM EDT Plan of Treatment Upcoming Encounters Date Type Department Care Team (Late st Contact Info) Description 10/25/2024 4:30 PM EDT Procedure Visit [facility] [address] [place] [address] Mariely Wild MD [address] [place] [phone] 12/06/2024 3:10 PM EDT Office Visit [facility] [address] [place] [address] Pierre Cody NP [address] [place] [address] Health Maintenance Due Date Last Done Comments Diabetes: Foot Exam 1994 Eye Exam 1994 Alcohol/Substance Use Screening 1996 Family Planning (PISQ) 08/22/1999 Hepatitis C Screening 2002 Hepatitis B Vaccines (1 of 3 - 19+ 3-dose series) 08/22/2003 Pneumococcal Vaccine: Pediatrics (0 to 5 Years) and At-Risk Patients (6 to 49) Years) (1 of 2 - PCV) 08/22/2003 COVID-19 Vaccine (3 - season) 2024 07/16/2021, 06/15/2021 Influenza Vaccine (#1) 2024 Mammogram 2024 Cervical Cancer Screening 10/20/2024 HPV/Cotest 10/20/2024 10/21/2023, 09/30/2022 Pap Smear 10/20/2024 10/21/2023, 05/0 07/2022, 10/10/2021 SDOH Screening 11/28/2024 11/29/2023 Diabetes: Urine Protein Screening 12/27/2024 12/28/2023 Diabetes: Hemoglobin A1C 02/23/2025 025, 11/29/2023, 09/11/2021, Additional history exists Depression Screening 05/08/2025 05/08/2024, 05/08/20 Lipid Panel 08/23/2025 08/23/2024, 11/29/2023 Tobacco Screening 08/23/2025 08/23/2024 DTaP/Tdap/Td Vaccines (3 - Td or Tdap) 06/15/2029 06/15/2019, 06/15/2019 Zoster Vaccines (1 of 2) 2034 RSV Patients and Patients Aged 60 years or older (1 - 1-dose 75+ series) 08/22/2059 HIV Screening Completed 02/01/2020, 06/15/2019 HIB Vaccines Aged Out No longer eligi ble based on patient's age to complete this topic HPV Vaccines Aged Out No longer eligi ble based on patient's age to complete this topic Hepatitis A Vaccines Aged Out No long er eligible based on patient's age to complete this topic IPV Vaccines Aged Out No longer eligi ble based on patient's age to complete this topic Meningococcal Vaccine Aged Out No char blayne eligible based on patient's age to complete this topic RSV under 20 months Aged Out No longe r eligible based on patient's age to complete this topic Rotavirus Vaccines Aged Out No longer eligible based on patient's age to complete this topic Procedures Procedure Name Priority Date/Time Associated Diagnosis Comments LIPID PANEL WITH REFLEX TO DIRECT LDL Routine 08/23/2024 3:48 PM EDT Type 2 diabetes mellitus with obesity ([facility]) ([facility]) COMPREHENSIVE METABOLIC PANEL Routine 08/23/2024 3:48 PM EDT Type 2 diabetes mellitus with obesity (CMS/HCC) ([facility]) HEMOGLOBIN A1C Routine 08/23/2024 3:48 PM EDT Type 2 diabetes mellitus with obesity (CMS/HCC) ([facility]) ALBUMIN, RANDOM URINE W/CREATININE Routine 12/28/2023 4:09 PM EDT Type 2 diabetes mellitus with obesity (CMS/HCC) ([facility]) THINPREP IMAGING PAP AND HPV MRNA E6/E7 REFLEX HPV 16,18/[address]/NG Routine 10/21/2023 2:13 PM EDT [facility] RESULT Routine 02/01/2020 11:45 AM EDT from Last 3 Months or Most Recently Relevant to Health Maintenance Results * (ABNORMAL) Lipid Panel with Reflex to Direct LDL (08/23/2024 3:48 PM EDT) Cholesterol, Total 272(H) <200 mg/dL [facility] [place] [facility] HDL Cholesterol 37(L) > OR = 50 mg/dL [facility] [place] [facility] Triglycerides 121 <150 mg/dL [facility] [place] [facility] LDL Cholesterol 209(H) mg/dL [facility] [place] [facility] Comment: LDL-C levels > or = 190 mg/dL may indicate familial hypercholesterolemia (FH). Clinical assessment and measurement of blood lipid levels should be considered for all first degree relatives of patients with an FH diagnosis. LDL Cholesterol (LDL-C) levels > or = 300 mg/dL may indicate homozygous familial hypercholesterolemia (HoFH). Untreated, these extremely high LDL-C levels can result in premature CV events and mortality. Patients should be identified early and provided appropriate interventions to reduce the cumulative LDL-C burden from . For questions about testing for familial hypercholesterolemia, please call [facility] at [phone]. Fuentes Gomes, et al. J National Lipid Association Recommendations for Patient-Centered Management of Dyslipidemia: Part 1 Journal of Clinical Lipidology 2015;9(2), 129-169. Justin Goode et al. (2014). Homozygous familial hypercholesterolaemia: new insights and guidance for clinicians to improve detection and clinical management. Heart Journal, 35(32), 2878-4968. Reference range: <100 Desirable range <100 mg/dL for primary prevention; ?? <70 mg/dL for patients with CHD or diabetic patients with > or = 2 CHD risk factors. LDL-C is now calculated using the Franco-Marco calculation, which is a validated novel method providing better accuracy than the Friedewald equation in the estimation of LDL-C. Franco SS et al. JOI. 2013;310(19): 6723-8119 (http://education.[employer]/faq/CKA302) Chol/HDLC Ratio 7.4(H) <5.0 (calc) [facility] Non-HDL Cholesterol 235(H) <130 mg/dL [facility] Comment: Non-HDL level > or = 220 is very high and may indicate genetic familial hypercholesterolemia (FH). Clinical assessment and measurement of blood lipid levels should be considered for all first-degree relatives of patients with an FH diagnosis. For patients with diabetes plus 1 major ASCVD risk factor, treating to a non-HDL-C goal of <100 mg/dL (LDL-C of <70 mg/dL) is considered a therapeutic option. Blood 08/23/2024 3:48 PM EDT 08/23/2024 3:49 PM EDT us Pierre Cody NP LAB BLOOD ORDERABLES Final Resul t [facility] [address], [place] [address] [facility] [address] [place] [address] * (ABNORMAL) Hemoglobin A1c (08/23/2024 3:48 PM EDT) Hemoglobin A1c 6.5(H) <5.7 % of total Hgb [facility] Comment: For someone without known diabetes, a hemoglobin A1c value of 6.5% or greater indicates that they may have diabetes and this should be confirmed with a follow-up test. For someone with known diabetes, a value <7% indicates that their diabetes is well controlled and a value greater than or equal to 7% indicates suboptimal control. A1c targets should be individualized based on duration of diabetes, age, comorbid conditions, and other considerations. Currently, no consensus exists regarding use of hemoglobin A1c for diagnosis of diabetes for children. ?? Blood Venous blood specimen / Unknown 08/23/2024 3:48 PM EDT 08/23/2024 3:49 PM EDT us Pierre Cody NP LAB BLOOD ORDERABLES Final Resul t [facility] [address], [place] [address] [facility] [place] [facility] [address] [place] [address] * Comprehensive Metabolic Panel (08/23/2024 3:48 PM EDT) [facility] Glucose 82 65 - 99 mg/dL [facility] [place] [facility] Comment: ? Fasting reference interval Urea Nitrogen (BUN) 15 7 - 25 mg/dL [facility] [place] [facility] Creatinine, Serum 0.76 0.50 - 0.99 mg/dL [facility] [place] [facility] eGFR 102 > OR = 60 mL/min/1. 73m2 [facility] [place] [facility] BUN/Creatinine Ratio SEE NOTE: (calc) [facility] [place] [facility] Comment: ?? Not Reported: BUN and Creatinine are within ?? reference range. ? Sodium 139 135 - 146 mmol/L [facility] Potassium 3.7 3.5 - 5.3 mmol/L [facility] [place] [facility] Chloride 102 98 - 110 mmol/L [facility] [place] [facility] Carbon Dioxide 29 20 - 32 mmol/L [facility] [place] [facility] Calcium 9.1 8.6 - 10.2 mg/dL [facility] [place] [facility] Protein, Total 7.1 6.1 - 8.1 g/dL [facility] [place] [facility] Albumin 4.2 3.6 - 5.1 g/dL [facility] [place] [facility] Globulin 2.9 1.9 - 3.7 g/dL (calc) [facility] [place] [facility] Albumin/Globuli n Ratio 1.4 1.0 - 2.5 (calc) [facility] [place] [facility] Bilirubin, Total 0.6 0.2 - 1.2 mg/dL [facility] [place] [facility] Alkaline Phosphatase 55 31 - 125 U/L [facility] [place] [facility] AST 17 10 - 30 U/L [facility] [place] [facility] ALT 12 6 - 29 U/L [facility] [place] [facility] Blood Venous blood specimen / Unknown 08/23/2024 3:48 PM EDT 08/23/2024 3:49 PM EDT Pierre Cody NP LAB BLOOD ORDERABLES Final Resul t [facility] [address], [place] [address] [facility] [place] [facility] [address] [place] [address] * Albumin, Random Urine W/Creatinine (12/28/2023 4:09 PM EDT) Creatinine, Random Urine 240 20 - 275 mg/dL [facility] [place] [facility] Albumin, Urine 0.9 See Note: mg/dL [facility] [place] [facility] Comment: Reference Range: Reference Range Not established Albumin/Creatinin e Ratio, Random Urine 4 <30 mg/g creat [facility] [place] [facility] Comment: The ADA defines abnormalities in albumin excretion as follows: Albuminuria Category ?Result (mg/g creatinine) Normal to Mildly increased ?? <30 Moderately increased ? 30-299 Severely increased ? > OR = 300 The ADA recommends that at least two of three specimens collected within a 3-6 month period be abnormal before considering a patient to be within a diagnostic category. Urine 12/28/2023 4:09 PM EDT 12/28/2023 4:09 PM EDT Pierre Cody NP LAB URINE ORDERABLES Final Resul t [facility], [facility], [place] [address] [facility] [address] [place] [address] * [facility] Pap and HPV mRNA E6/E7 reflex HPV 16,18/[address]/NG (10/21/2023 2:13 PM EDT) Clinical Information: [facility] Comment:H/O HPV+ LMP: [facility] Comment:NONE GIVEN Prev. PAP: [facility] Comment:YES Prev. BX: [facility] Comment:YES SOURCE: [facility] Comment:None given Statement Of Adequacy: [facility] Comment: Satisfactory for evaluation. Endocervical/transformation zone component present. Interpretation/Res ult: [facility] Comment: Cytology Results: Negative for intraepithelial lesion or malignancy. COMMENT: [facility] Comment: This Pap test has been evaluated with computer assisted technology. [employer]: [employer] Comment: RXB, CT(ASCP) CT screening location: [address] ??[phone] Review [employer]: [facility] Comment: RMM, CT(ASCP) CT screening location: [address] ??[phone] (Always Message) [facility] Comment: EXPLANATORY NOTE: The Pap is a screening test for cervical cancer. It is not a diagnostic test and is subject to false negative and false positive results. It is most reliable when a satisfactory sample, regularly obtained, is submitted with relevant clinical findings and history, and when the Pap result is evaluated along with historic and current clinical information. HPV nRNA E6/E7 Not Detected Not Detected [facility] Comment: Methodology: C[employer]ter Builder-Mediated Amplification This assay detects E6/E7 viral messenger RNA (mRNA) from 14 high-risk HPV types (16,18,31,33,35,39,45,51,52,56,58,59,66,68). Cervical sources are required for HPV testing. If a vaginal source from a patient who has had a total hysterectomy with removal of cervix was submitted, please contact the testing laboratory for alternative testing options. For additional information, please refer to http://payByMobile.GLSS/faq/OGP161q1 (This link if provided for information/ educational purposes only.) Chlamydia trachomatis RNA, TMA, Urogenital NOT DETECTED NOT DETECTED [facility] Neisseria gonorrhoeae RNA, TMA, Urogenital NOT DETECTED NOT DETECTED [facility] (Always Message) [facility] Comment: The analytical performance characteristics of this assay, when used to test SurePath(TM) specimens have been determined by [facility]. The modifications have not been cleared or approved by the FDA. This assay has been validated pursuant to the CLIA regulations and is used for clinical purposes. For additional information, please refer to https://payByMobile.GLSS/faq/TKD526 (This link is being provided for information/ educational purposes only.) 10/21/2023 2:13 PM EDT 10/22/2023 12:51 AM EDT Narrative [facility] - 10/26/2023 9:07 PM EDT AN UPDATE OR CORRECTION HAS BEEN MADE TO NAME Mariely Wild MD LAB PATHOLOGY ORDERABLES Final Result [facility] [address], [place] [address] [facility] [place] [facility] [address] [place] [address] * (ABNORMAL) [facility] RESULT (02/01/2020 11:45 AM EDT) cholesterol, serum 252(H) <200 mg/dL [facility] HDL cholesterol, serum 45(L) > OR = 50 mg/dL [facility] triglyceride, serum, random 87 <150 mg/dL [facility] LDL cholesterol, serum 187 MG/DL (CALC)(H) mg/dL [facility] cholesterol/HDL ratio, serum, percent 5.6 (calc)(H) <5.0 [facility] cholesterol, non-HDL, total 207 MG/DL (CALC)(H) <130 mg/dL [facility] protein, total, serum 7.2 6.1 - 8.1 g/dL [facility] Albumin 4.2 3.6 - 5.1 g/dL [facility] alpha-1 globulin, serum 0.3 g/dL 0.2 - 0.3 [facility] alpha-2 globulin, serum 0.7 g/dL 0.5 - 0.9 [facility] gamma globulin, serum 1,200 Units converted. See lab report for original value. mg/dL [facility] serum protein electrophoresis, interpretation/comm ent * [facility] HIV 1/2 ANTIGEN/ANTIBODY W/RFL NON-REACTIVE NON-REACTI VE [facility] blood glucose, random 123(H) 65 - 99 mg/dL [facility] urea nitrogen, blood 17 7 - 25 mg/dL [facility] creatinine, serum 0.90 0.50 - 1.10 mg/dL [facility] Estimated Glomerular Filtration Rate (calc) 83 > OR = 60 mL/min/1.7 3m2 [facility] eGFR if 96 > OR = 60 mL/min/1.7 2 [facility] urea nitrogen/creatinine ratio, serum NOT APPLICABLE (calc) 6 - 22 [facility] sodium, serum 141 135 - 146 mmol/L [facility] potassium, serum 4.6 3.5 - 5.3 mmol/L [facility] chloride, serum 106 98 - 110 mmol/L [facility] carbon dioxide, venous blood 26 20 - 32 mmol/L [facility] calcium, serum 9.2 8.6 - 10.2 mg/dL [facility] globulin, serum 3.0 1.9 - 3.7 [facility] albumin/globulin ratio, serum 1.4 (calc) 1.0 - 2.5 [facility] bilirubin, serum, total 0.3 0.2 - 1.2 mg/dL [facility] alkaline phosphatase, serum 63 31 - 125 units/L [facility] aspartate aminotransferase (SGOT), serum 12 10 - 30 units/L [facility] alanine aminotransferase (SGPT), serum 10 6 - 29 units/L [facility] erythrocyte sedimentation rate 29(H) < OR = 20 mm/hr [facility] C-reactive protein, serum 0.14 Units converted. See lab report for original value. mg/dL [facility] EDIS (antinuclear antibody) pattern, serum NEGATIVE NEGATIVE [facility] B-12, serum 618 200 - 1,100 pg/mL [facility] TSH (thyroid stimulating hormone) with reflex FT4 7.47(H) mIU/L [facility] thyroxine, serum, free 1.0 0.8 - 1.8 ng/dL [facility] hemoglobin A1C, blood, as % of total hemoglobin 6.1 % OF TOTAL HGB(H) <5.7 % [facility] CHLAMYDIA TRACHOMATIS RNA, TMA, URETHRAL NOT DETECTED NOT DETECTED [facility] NEISSERIA GONORRHOEAE RNA, TMA, URETHRAL NOT DETECTED NOT DETECTED [facility] rapid plasma reagin antibody, serum NON-REACTIVE NON-REACTI VE [facility] 02/01/2020 11:4 5 AM EDT us Pierre Cody NP HISTORICAL/NON ORDERABLE LABS Fi nal Result [facility] [address] Street from Last 3 Months or Most Recently Relevant to Health Maintenance Insurance [facility] C3 Care Teams Body Artist Relationship Specialty Start Date End Date Pierre Cody NP [address] [place] [id number] PCP - General Internal Medicine 11/14/21
--- OUTSIDE RECORDS SUMMARY | 2024-09-01 22:58 | XMS_ITS | Clinical Summary ---
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 Name Role Phone Unavailable Primary Care Provider Unavailabl e Social History Tobacco Use Types Packs/Day Years Used Date Smoking Tobacco: Never Assessed Comments Unknown Sex and Gender Information Value Date Recorded Sex Assigned at Not on file Legal Sex Female 9:56 AM EST Gender Identity Not on file Sexual Orientation Not on file Plan of Treatment Health Maintenance Due Date Last Done Comments Breast Cancer Screening 1984 DTaP,Tdap,and Td Vaccines (1 - Tdap) 08/22/2003 Hepatitis B Vaccines (1 of 3 - 19+ 3-dose series) 08/22/2003 Cervical Cancer Screening: P ap Smear 2005 Depression Screening 05/03/2022 HIV Screening 05/03/2022 Hepatitis C Screening 05/03/2022 Social Influencers of Health Screening 05/03/2022 COVID-19 Vaccine (2023-2 5 season) 2024 Influenza Vaccine (#1) 2024 HIB Vaccines Aged Out No longer eligi [...] on patient's age to complete this topic MMR Vaccines Aged Out No longer eligi ble based on patient's age to complete this topic Meningococcal ACWY Vaccine Aged Out N o longer eligible based on patient's age to complete this topic Meningococcal B Vacine Aged Out No lo nger eligible based on patient's age to complete this topic Pneumococcal Vaccine: Pediat rics (0 to 5 Years) and At-Risk Patients (6 to 64 Years) Aged Out No longer eligible b ased on patient's age to complete this topic RSV Immunization Patients Un svetlana 20 months Aged Out No longer eligible b ased on patient's age to complete this topic Varicella Vaccines Aged Out No longer eligible based on patient's age to complete this topic
[2024-09-01] MEDS: Amoxicillin/Potassium Clav 875 MG TABLET PO (23:00)
[2024-09-01 23:03] VITALS: BP 170/87; PULSE 60; RESP 16; TEMP 36.3; O2SAT 98
== END 2024-09-01 23:07 | disposition home or self-care (01) ==
PROVIDERS: Physician Assistant Medical; Emergency Provider Emergency Medicine
DX: R10.30 Lower abdominal pain, unspecified (principal); R10.814 Left lower quadrant abdominal tenderness; Z03.818 Encounter for observation for suspected exposure to other biological agents ruled out
CPT/HCPCS: 0241U; 80053; 83735; 85025; 99283; 99284

== ENCOUNTER 2025-05-18 16:21 | Emergency (ER) | payer MEDICAID, SELFPAY ==
--- NOTE | ~2025-05-18 | XR_ITS ---
CLINICAL HISTORY: lt knee pain injury 8 view bilateral knee Comparison: None provided Findings: Bones intact. No dislocations. No significant loss of joint space, osteophytes, or erosions. No joint effusion. No radiopaque foreign body. IMPRESSION: 1. No acute findings. This document has been electronically signed by: Eric Marte MD on 05/18/2025 17:57:06
[2025-05-18 16:45] VITALS: BP 135/72; PULSE 64; RESP 18; TEMP 36.5; O2SAT 98; BMI 34.0
--- NOTE | 2025-05-18 19:01 | ED.LOWEXIN ---
HPI - Extremity Injury (Lower) General Chief Complaint: Extremity Injury, Lower Stated Complaint: right knee injury Time Seen by Provider: 05/18/25 19:00 Source: patient, RN notes reviewed and old records reviewed Mode of arrival: ambulatory History of Present Illness ED Provider: Iona Flores PA-C HPI Narrative: 39-year-old female with no significant past medical history presenting to the ED complaining of bilateral knee pain x few weeks, right greater than left. Admits to hitting knees a few different times. Reports pain with ambulation. Denies numbness, tingling, weakness Related Data Previous Rx's ?Medication ?Instructions ?Recorded cefuroxime axetil 250 mg tablet 250 mg PO BID #13 tabs 04/01/24 phenazopyridine 200 mg tablet 200 mg PO TID 6 doses #6 tabs 04/30/24 (Pyridium) metronidazole 500 mg tablet 500 mg PO BID #14 tabs 05/02/24 amoxicillin 875 mg-potassium 1 tab PO BID #20 tabs 07/04/24 clavulanate 125 mg tablet amoxicillin 875 mg-potassium 1 tab PO Q12H #14 tabs 09/01/24 clavulanate 125 mg tablet Allergies Allergy/AdvReac Type Severity Reaction Status Date / Time No Known Allergies Allergy Verified 05/18/25 16:48 Review of Systems Review of Systems: Yes all other systems are reviewed and are negative Constitutional: Constitutional: Reports as per [facility] Past Medical History Attestation statement: The following information was validated with the patient. Source: old records reviewed Physical Exam Vital Signs: Vital Signs: Last Vital Signs Temp 97.7 F 05/18/25 16:45 Pulse 64 05/18/25 16:45 Resp 18 05/18/25 16:45 BP 135/72 05/18/25 16:45 Pulse Ox 98 05/18/25 16:45 O2 Del Method Room Air 05/18/25 16:45 BMI result Body Mass Index 34.0 Const: General: cooperative, healthy appearing and no acute distress Orientation/consciousness: patient oriented x3 Limitations: no limitations HEENT: Head: Yes normal to inspection and Yes atraumatic Ears: hearing grossly normal bilaterally General nose exam: Normal external nose present Face and sinus: Yes normal facial exam Eyes: General: appearance normal, both eyes and all related structures EOM: EOMs intact bilaterally Neck: Neck: Yes normal visual inspection and Yes no meningeal signs Resp: Effort & Inspection: normal respiratory effort and no respiratory distress Cardio: Rate: regular rate Skin: Rashes: no rashes Wounds: no wounds Neuro: General: patient oriented x3, tone normal and no meningeal signs Cranial nerves: Yes CN's II-XII intact bilaterally Gait exam (Neuro): Normal gait present Extrem: Other: No appreciable lower extremity deformity. Bilateral knee tenderness to palpation > right. No erythema or warmth. Neurovascularly intact distally. No crepitus General: Yes normal to inspection Course Course Course Narrative: XR Knee Toi 4V IMPRESSION: 1. No acute findings. > hinged knee brace applied to right knee. Jose Luis wrap applied to left Results discussed with patient including worrisome signs and symptoms and strict return precautions, and when to return to the emergency department. They verbalized understanding and feel safe for discharge at this time. Medical Decision Making Medical Decision Making MDM Narrative: 39-year-old female with no significant past medical history presenting to the ED complaining of bilateral knee pain x few weeks, right greater than left. On exam vital signs stable, NAD, nontoxic appearing, physical exam as noted above. Concern for sprain vs fracture. No evidence of septic joint/arthritis. Lower suspicion for DVT Plan: X-rays Please refer to course for remaining clinical decision making, interpretation of labs/imaging results, and discussions with consultants and/or family members. Differential Diagnosis Differential Diagnoses: The differential diagnosis associated with the presentation includes As above Independent Interpretation I performed an independent interpretation of an: Plain X-Ray Radiology Impression Discussion of test interpretation with radiology: I have reviewed the radiologist's reading. External Record Review External record reviewed: Inpatient record, Office record, Outpatient record, Prior outpatient labs, Prior outpatient radiology, Primary care record and Outside ED record Tests considered The following testing was considered but not selected: As above Prescription Management I considered prescription management with: Pain Medication Social Determinants Patient?s care significantly limited by Social Determinants of Health including: Low income and Other Social Determinant of Health Discharge Plan Discharge Clinical Impression: Bilateral knee pain Patient Disposition: Home, Self-Care Instructions: Knee Pain (ED) Additional Instructions: Your x-rays unremarkable Wear hinged knee brace and Jose Luis wrap for comfort and stability Ice and elevate Take Tylenol and ibuprofen for pain Follow up with your doctor as well as Orthopedics If symptoms persist or worsen or area begins to look infected return to the emergency department Prescriptions: No Action phenazopyridine [Pyridium] 200 mg tablet 200 mg PO TID Qty: 6 0RF metronidazole 500 mg tablet 500 mg PO BID Qty: 14 0RF amoxicillin-pot clavulanate 875-125 mg tablet 1 tab PO BID Qty: 20 0RF cefuroxime axetil 250 mg tablet 250 mg PO BID Qty: 13 0RF amoxicillin-pot clavulanate 875-125 mg tablet 1 tab PO Q12H Qty: 14 0RF Referrals: [facility] [place] [facility] [Provider Group] - 1 week Print Language: Greenlandic
--- OUTSIDE RECORDS SUMMARY | 2025-05-18 19:07 | XMS_ITS | Clinical Summary ---
Author Organization [employer] Address [address] [facility] [address] [place] [address] Care Team Providers Care Vice President Financial Name Role Phone Pierre Cody NP Primary Care Provider [phone] Allergies No known active allergies Medications Unithroid 88 MCG tablet Take 88 mcg by mouth in the morning. 11/02/2021 Active ergocalciferol (Vitamin D2) 1.25 MG (08941 UT) capsule Take by mouth. 06/15/2019 Active metFORMIN (Glucophage) 500 MG tabletIndication s:Type 2 diabetes mellitus with obesity Take 1 tablet (500 mg) by mouth with breakfast. 90 tablet 1 01/08/2025 Active tretinoin (Retin-A) 0.025 % cream Apply to cysts on ears as needed nightly. 04/06/2024 Active Active Problems Problem Noted Date Diagnosed Date Screen for STD (sexually transmitted disease) Assessment & Plan (01/08/2025 5:22 PM EDT): Pt with request for routine STI/HIV screening at this time. No vaccination-pt refuse 08/23/2024 Assessment & Plan (08/23/2024 3:35 PM EDT): Reviewed vaccine(s) that she would benefit from given diabetes. She declines today. Type 2 diabetes mellitus with obesity 11/30/2023 Assessment & Plan (01/08/2025 5:23 PM EDT): Last HgA1C 6.5%. - July 2025 Continue Metformin 500mg, which she is taking once daily at this time. Non-pharm: Briefly reviewed diet/nutrition. Due for HgA1c testing ~today their A1c is 6.3% F/u 3 months. Assessment & Plan (08/23/2024 3:34 PM EDT): [...] Routine general medical exam ination at a health care facility 09/30/2022 Assessment & Plan (01/08/2025 5:22 PM EDT): -reviewed breast self-awareness, diet/nutrition, physical activity, sexual health, seatbelts, sun exposure, ETOH/illicit drugs/tobacco, cervical/breast CA screening. -Reviewed importance of dental/eye exam. -Immunizations: reviewed, she does not want vaccines -Labwork entered, will get back with results. Assessment & Plan (11/29/2023 4:31 PM EDT): [...] with results. Hyperlipidemia 10/09/2021 Assessment & Plan (01/08/2025 5:24 PM EDT): She does have abnl lipid panel. Would like to repeat lab work in 2 months for evaluation; also check Lipo(a). She does not wish for statin therapy at this time, would rather see Nutrition Services. Referral placed. Assessment & Plan (08/23/2024 3:33 PM EDT): [...] PM EDT): Pt follows with Endo at [facility]. Vitamin D deficiency 05/30/2018 Encounters Date Type Department Care Team Description 03/02/2025 Orders Only [facility] [place] [address] Pierre Cody NP Hyperlipidemia, unspecified hyperlipidemia type (Primary Dx) from Last 3 Months Immunizations Immunization Administration Dates Next Due Td (adult), unspecified 06/15/2019 Tdap 06/15/2019 Family History Medical History Relation Name Comments Breast cancer Mother Fatou Diabetes Mother Fatou Cervical cancer Neg Hx Colon cancer Neg Hx Melanoma Neg Hx Ovarian cancer Neg Hx Relation Name Status Comments Brother half brother- n ever met, unsure health history Father unsure of healt h history; unsure if alive or Maternal Grandfather Maternal Grandmother Mother Fatou Alive Paternal Grandfather Social History Tobacco Use Types Packs/Day Years Used Date Smoking Tobacco: Never Smokeless Tobacco: Never Tobacco Cessation:Counseling Given: Not Answered Alcohol Use Standard Drinks/Week Comments Not Currently 0 (1 standard drink = 0.6 oz pur e alcohol) rare Depression Answer Date Recorded Patient Health Questionnaire-9 Score 0 01/08/2025 Patient Health Questionnaire-9 Score 0 01/08/2025 Last PHQ-9: Questionnaire Data 1 0 01/08/2025 Housing Stability Answer Date Recorded What is your housing situation today? I do not have housing (Staying with others, in a hotel, in a correction, living outside on the street, on a beach, in a car, or in a park 01/08/[address] you li ve. Do you have problems with any of the following? None of the above 01/08/2025 Food Insecurity Answer Date Recorded Within the past 12 months, y ou worried that your food would run out before you got money to buy more: Never True 01/08/2025 Within the past 12 months,th e food you bought just didn't last and you didn't have enough money to get more: Never True 03/2025 Transportation Answer Date Recorded In the past 12 months, has l ack of transportation kept you from medical appts, meetings, work or from getting things needed for daily living? No 01/08/2025 Utilities Answer Date Recorded In the past 12 months, has t he electric, gas, oil or water company threatened to shut off services in your home? No 01/08/2025 Depression Answer Date Recorded Patient Health Questionnaire-2 Score 0 01/08/2025 Internet Access Answer Date Recorded Internet Access Q1 Yes 01/08/2025 Internet Access Q2 Not on file 01/08/2025 Education Answer Date Recorded What is the [...] Sign Reading Time Taken Comments Blood Pressure 118/70 01/08/2025 2:27 PM EDT Pulse 62 01/08/2025 2:27 PM EDT Temperature 36.2 C (97.2 F) 01/08/2025 2:27 PM EDT Respiratory Rate - - Oxygen Saturation 100% 01/08/2025 2:27 PM EDT Inhaled Oxygen Concentration - - Weight 80.8 kg (178 lb 3.2 oz) 01/08/2025 2:27 P M EDT Height 154 cm (5' 0.63 ) 01/08/2025 2:27 PM EDT Body Mass Index 34.08 01/08/2025 2:27 PM EDT Plan of Treatment Upcoming Encounters Date Type Department Care Team (Late st Contact Info) Description 06/07/2025 9:40 AM EST Office Visit [facility] [address] [place] [address] Pierre Cody NP [address] [place] [address] 06/07/2025 12:00 PM EST Office Visit [facility] [address] [place] [address] Laine Bai DPM [address] [place] [address] Health Maintenance Due Date Last Done Comments Eye Exam 1994 Alcohol/Substance Use Screening 1996 Family Planning (PISQ) 08/22/1999 HPV Vaccines (1 - 3-dose series) 08/22/1999 Hepatitis C Screening 2002 Hepatitis B Vaccines (1 of 3 - 19+ 3-dose series) 08/22/2003 Pneumococcal Vaccine: Pediatrics (0 to 5 Years) and At-Risk Patients (6 to 49) Years (1 of 2 - PCV) 08/22/2003 Diabetes: Urine Protein Screening 12/27/2024 12/28/2023 COVID-19 Vaccine ( - season) 2025 07/16/2021, 06/15/2021 Influenza Vaccine (#1) 2025 Diabetes: Hemoglobin A1C 07/11/2025 025, 08/23/2024, 08/23/2024, Additional history exists Lipid Panel 08/23/2025 08/23/2024, 11/29/2023 Depression Screening 01/08/2026 01/08/2025, 01/09/20 25 Diabetes: Foot Exam 01/08/2026 01/08/2025, Disability Screening 01/08/2026 01/08/2025 SDOH Screening 01/08/2026 01/08/2025 Tobacco Screening 01/08/2026 01/08/2025 Mammogram 01/06/2027 01/06/2025, 01/06/2025 Cervical Cancer Screening 11/16/2027 HPV/Cotest 11/16/2027 11/15/2024, 09/29, 09/30/2022 Pap Smear 11/16/2027 11/15/2024, 09/29, 09/30/2022, Additional history exists DTaP/Tdap/Td Vaccines (3 - Td or Tdap) 06/15/2029 06/15/2019, 06/15/2019 Zoster Vaccines (1 of 2) 2034 RSV Patients and Patients Aged 60 years or older (1 - 1-dose 75+ series) 08/22/2059 HIV Screening Completed 01/08/2025, 07/2019, 06/15/2019 HIB Vaccines Aged Out No longer eligi ble based on patient's age to complete this topic Hepatitis A Vaccines Aged Out No long er eligible based on patient's age to complete this topic IPV Vaccines Aged Out No longer eligi ble based on patient's age to complete this topic Meningococcal B Vaccine Aged Out No l onger eligible based on patient's age to complete this topic Meningococcal Vaccine Aged Out No char blayne eligible based on patient's age to complete this topic RSV under 20 months Aged Out No longe r eligible based on patient's age to complete this topic Rotavirus Vaccines Aged Out No longer eligible based on patient's age to complete this topic Goals Goal Patient Goal Type Associated Problems Recent Progress Patient-Stated? Author Help patients manage their type 2 diabetes Care Plan Help patients manage their type 2 diabetes Kirsten Sullivan MA Patient has chronic kidney disease Care Plan Patient has chronic kidney disease Kirsten Sullivan MA Procedures Procedure Name Priority Date/Time Associated Diagnosis Comments POCT GLYCATED HEMOGLOBIN, TOTAL Routine 01/08/2025 5:51 PM EDT Routine general medical examination at a health care facility HIV 1/2 ANTIGEN/ANTIBODY, FOURTH GENERATION W/RFL Routine 01/08/2025 3:34 PM EDT Screen for STD (sexually transmitted disease) MAMMO SCREENING TOMOSYNTHESIS BILATERAL Routine 01/06/2025 3:05 PM EDT THINPREP IMAGING PAP AND HPV MRNA E6/E7 WITH REFLEX TO HPV 16,18/45 Routine 11/15/2024 12:00 AM EDT History of abnormal cervical Pap smear LIPID PANEL WITH REFLEX TO DIRECT LDL Routine 08/23/2024 3:48 PM EDT Type 2 diabetes mellitus with obesity (CMS/HCC) ([facility]) ALBUMIN, RANDOM URINE W/CREATININE Routine 12/28/2023 4:09 PM EDT Type 2 diabetes mellitus with obesity (CMS/HCC) ([facility]) from Last 3 Months or Most Recently Relevant to Health Maintenance Results * (ABNORMAL) HBA1C - Point of Care (01/08/2025 5:51 PM EDT) Hemoglobin A1C 6.3(A) 4.0 - 5.7 % QC Media Lot # [id number] Lot# Expiration Date Blood 01/08/2025 5:51 PM EDT us Pierre Cody NP POINT OF CARE TEST ENTER/EDIT OR DERABLES Final Result * HIV-1/2 Antigen and Antibodies, Fourth Generation, with Reflexes (01/08/2025 3:34 PM EDT) HIV Final Interpretation [facility] Comment: HIV Negative HIV-1 antigen and HIV-1/HIV-2 antibodies were not detected. There is no laboratory evidence of HIV infection. HIV Antigen/Antibody, 4th Generation NON-REACT LEN NON-REAC TIVE [facility] Blood Venous blood specimen / Unknown 01/08/2025 3:34 PM EDT 01/08/2025 3:35 PM EDT Narrative [facility] - 01/10/2025 10:08 AM EDT SPECIMEN COLLECTED AT PROVIDER OFFICE. us Pierre Cody NP LAB BLOOD ORDERABLES Final Resul t [facility] [address], [place] [address] [facility] [place] [facility] [address] [place] [phone] * MAMMO SCREENING TOMOSYNTHESIS BILATERAL (01/06/2025 3:05 PM EDT) Anatomical Region Laterality Modality Mammography Impressions 01/17/2025 10:17 PM EDT IMPRESSION: No mammographic evidence of malignancy. Supplemental high-risk screening MRI is recommended given reported family history of breast cancer in the patient's mother at age 4242 years old. NOTIFICATION: A summary letter will be sent to the patient with this result. FINAL ASSESSMENT: BI-RADS Category: 1 Negative. Side: Bilateral. Recommendation: Age and risk appropriate screening. BY ELECTRONICALLY SIGNING THIS REPORT, I THE ATTENDING PHYSICIAN ATTEST THAT I HAVE REVIEWED THE IMAGES FOR THE ABOVE PROCEDURE(S) AND AGREE WITH THE FINDINGS DOCUMENTED. MD Cinthia Ledesma MD, electronically signed on Jan 17 2025 10:17PM Narrative 01/17/2025 10:17 PM EDT EXAMINATION: BILATERAL DIGITAL SCREENING MAMMOGRAM AND 3D DIGITAL BREAST TOMOSYNTHESIS INTERPRETED WITH CAD INDICATION: Screening. Family history of breast cancer in mother COMPARISON: None. Baseline. TECHNIQUE: Digital Mammogram and 3D tomosynthesis views were obtained. Computer aided detection was utilized and assisted with interpretation. FINDINGS: Tissue density: B - There are scattered areas of fibroglandular density. There is no suspicious dominant mass, unexplained architectural distortion or suspicious grouped microcalcifications. Procedure Note Donotuseinterpreter, Image - 01/17/2025 EXAMINATION: BILATERAL DIGITAL SCREENING MAMMOGRAM AND 3D DIGITAL BREAST TOMOSYNTHESISINTERPRETED WITH CAD INDICATION: Screening. Family history of breast cancer in mother COMPARISON: None. Baseline. TECHNIQUE: Digital Mammogram and 3D tomosynthesis views were obtained. Computeraided detection was utilized and assisted with interpretation. FINDINGS: Tissue density: B - There are scattered areas of fibroglandular density. There is no suspicious dominant mass, unexplained architectural distortionor suspicious grouped microcalcifications. IMPRESSION: IMPRESSION: No mammographic evidence of malignancy. Supplemental high-risk screening MRI is recommended given reported familyhistory of breast cancer in the patient's mother at age 4242 years old. NOTIFICATION: A summary letter will be sent to the patient with this result. FINAL ASSESSMENT: BI-RADS Category: 1 Negative. Side: Bilateral. Recommendation: Age and risk appropriate screening. BY ELECTRONICALLY SIGNING THIS REPORT, I THE ATTENDING PHYSICIAN ATTESTTHAT I HAVE REVIEWED THE IMAGES FOR THE ABOVE PROCEDURE(S) AND AGREE WITHTHE FINDINGS DOCUMENTED. MD Cinthia Ledesma MD, electronically signed on Jan 17 2025 10:17PM Mariely Wild MD IM BI PROCEDURES Final Result * [facility] Pap and HPV mRNA E6/E7 with Reflex to HPV 16,18/45 (11/15/2024 12:00 AM EDT) Clinical Information: [employer] Comment:None given LMP: [employer] Comment:[id number] Prev. PAP: [employer] Comment:NONE GIVEN Prev. BX: [employer] Comment:NO SOURCE: [employer] Comment:[employer]ix Statement Of Adequacy: [employer] Comment: Satisfactory for evaluation. Endocervical/transformation zone component present. Interpretation/Res ult: [employer] Comment: Cytology Results: Negative for intraepithelial lesion or malignancy. Comment: [employer] Comment: This Pap test has been evaluated with computer assisted technology. Seat Covers Trimmer: [employer] Comment: [place], CT(ASCP) CT screening location: [place] [address] Review Seat Covers Trimmer: [employer] Comment: [place], CT(ASCP) CT screening location: [place] [address] (Always Message) [facility] Comment: EXPLANATORY NOTE: The Pap is a [...] HPV nRNA E6/E7 Not Detected Not Detected [facility] Comment: Methodology: Publications Distribution Clerk-Mediated Amplification This assay detects E6/E7 viral messenger RNA (mRNA) from 14 high-risk HPV types (16,18,31,33,35,39,45,51,52,56,58,59,66,68). Cervical sources are required for HPV testing. If a vaginal source from a patient who has had a total hysterectomy with removal of cervix was submitted, please contact the testing laboratory for alternative testing options. For additional information, please refer to http://education.Kasumi-sou/faq/JWA605x2 (This link if provided for information/ educational purposes only.) Cervix uteri structure / Unknown 11/15/2024 11/16/2024 4:21 AM EDT Mariely Wild MD LAB PATHOLOGY ORDERABLES Final Result [address], [place] [address] [facility] [address] [place] [address] * (ABNORMAL) Lipid Panel with Reflex to Direct LDL (08/23/2024 3:48 PM EDT) Cholesterol, Total 272(H) <200 mg/dL [facility] HDL Cholesterol 37(L) > OR = 50 mg/dL [facility] Triglycerides 121 <150 mg/dL [facility] [place] [facility] LDL Cholesterol 209(H) mg/dL [facility] [address] [facility] Comment: LDL-C levels > or = 190 [...] about testing for familial hypercholesterolemia, please call [employer] [facility] at [phone].GENE.INFO. Fuentes Gomes, et al. J National Lipid Association Recommendations for Patient-Centered Management of Dyslipidemia: Part 1 Journal of Clinical Lipidology 2015;9(2), 129-169. Ghulam Goode. et al. (2014). Homozygous familial hypercholesterolaemia: new insights and guidance for clinicians to improve detection and clinical management. Heart Journal, 35(32), 3184-5967. Reference range: <100 Desirable range <100 mg/dL for primary prevention; <70 mg/dL for patients with CHD or diabetic patients with > or = 2 CHD risk factors. LDL-C is now calculated using the Franco-Lara calculation, which is a validated novel method providing better accuracy than the Friedewald equation in the estimation of LDL-C. Franco SS et al. JOI. 2013;310(19): 0529-5067 (http://YiBai-shopping.Ocarina Networks/faq/EER722) Chol/HDLC Ratio 7.4(H) <5.0 (calc) [facility] Non-HDL Cholesterol 235(H) <130 mg/dL [facility] Comment: Non-HDL level > or = 220 [...] BLOOD ORDERABLES Final Resul t [facility] [address] [facility], [place] [address] [facility] [address] [place] [address] * Albumin, Random Urine W/Creatinine (12/28/2023 4:09 PM EDT) Creatinine, Random Urine 240 20 - 275 mg/dL [facility] Albumin, Urine 0.9 See Note: mg/dL [facility] Comment: Reference Range: Reference Range Not established Albumin/Creatinin e Ratio, Random Urine 4 <30 mg/g creat [facility] Comment: The ADA defines abnormalities in albumin excretion as follows: Albuminuria Category Result (mg/g creatinine) Normal to Mildly increased <30 Moderately increased 30-299 Severely increased > OR = 300 The ADA recommends that at least two of three specimens collected within a 3-6 month period be abnormal before considering a patient to be within a diagnostic category. Urine 12/28/2023 4:09 PM EDT 12/28/2023 4:09 PM EDT us Pierre Cody NP LAB URINE ORDERABLES Final Resul t [facility] [address], [place] [address] [facility] [address] [place] [address] from Last 3 Months or Most Recently Relevant to Health Maintenance Additional Health Concerns Active Problems Noted Date Diagnosed Date Help patients manage their type 2 diabetes 04/16 Patient has chronic kidney disease 04/16/2025 Insurance [facility] C3 Care Teams Vice President Financial Relationship Specialty Start Date End Date Pierre Cody NP [address] [place] [id number] PCP - General Internal Medicine 11/14/21
--- OUTSIDE RECORDS SUMMARY | 2025-05-18 19:07 | XMS_ITS | Clinical Summary ---
Author Organization [employer] [facility] it Address [address] [place] [address] Care Team Providers Care Director Of Plant Operations Name Role Phone Unavailable Primary Care Provider [...] Cervical Cancer Screening: P ap Smear 2005 HPV Vaccines (1 - 3-dose SCD M series) 08/22/2011 Depression Screening 05/31/2024 COVID-19 Vaccine (1 - 2024-2 6 season) 2025 Influenza Vaccine (#1) 2025 RSV Immunization Adult Patie nts (1 - 1-dose 75+ series) 08/22/2059 HIB Vaccines Aged Out No longer eligi [...] 5 Years) and At-Risk Patients (6 to 49 Years) Aged Out No longer eligible b ased on patient's age to complete this topic RSV Immunization Patients Un svetlana 20 months Aged Out No longer eligible b ased on patient's age to complete this topic Varicella Vaccines Aged Out No longer eligible based on patient's age to complete this topic
[2025-05-18 19:38] VITALS: BP 135/72; PULSE 64; RESP 18; TEMP 36.5; O2SAT 98
== END 2025-05-18 19:40 | disposition home or self-care (01) ==
PROVIDERS: Emergency Provider Emergency Medicine
DX: M25.561 Pain in right knee (principal); M25.562 Pain in left knee
CPT/HCPCS: 73564; 99282; 99283

== ENCOUNTER → 2025-05-18 17:04 | Outpatient (BNV) | payer MEDICAID, SELFPAY | PROVIDERS: Visit Provider Radiology Diagnostic Radiology | DX: M25.562 Pain in left knee (principal) | CPT/HCPCS: 73564 ==